=== PATIENT | female | born 1970 | race Caucasian/White ===

== ENCOUNTER 2023-12-21 09:44 | Outpatient (CLI) | payer OTHER | END 2023-12-21 23:59 | disposition home or self-care (01) | LOC: MRI 09:44 | PROVIDERS: ATTEND Podiatrist Foot & Ankle Surgery | DX: S93.492A Sprain of other ligament of left ankle, initial encounter (principal); M77.31 Calcaneal spur, right foot; M25.471 Effusion, right ankle; M65.872 Other synovitis and tenosynovitis, left ankle and foot; M76.62 Achilles tendinitis, left leg; M76.61 Achilles tendinitis, right leg; M79.671 Pain in right foot; M79.672 Pain in left foot | CPT/HCPCS: 73718 ==